=== PATIENT | male | born 1935 | race Caucasian/White ===

== ENCOUNTER 2019-08-06 09:57 | Day surgery (SDC) | payer OTHER, BC ==
[2019-08-02 18:28] VITALS: BMI 29.7
[2019-08-06] MEDS ORDERED: ACETAMINOPHEN 325 MG TABLET (FP) PO PRN (10:38)
[2019-08-06] MEDS: KETOROLAC TROMETHAMINE 0.5% EYE DROP 1 DROP DROPS ONE ×4 (10:45→11:00)
[2019-08-06] MEDS: CYCLOPENTOLATE HCL 1% OPHTH SOLN 2 ML BOTTLE ONE ×4 (10:45→11:00)
[2019-08-06] MEDS: PHENYLEPHRINE 2.5% OPHTH SOLN 15 ML BOTTLE ONE ×4 (10:45→11:00)
[2019-08-06] MEDS: OFLOXACIN 0.3% OPHTHALMIC SOLUTION 5 ML BOTTLE ONE ×4 (10:45→11:00)
[2019-08-06] MEDS: TROPICAMIDE 1% OPHTH SOLN 15 ML BOTTLE ONE ×4 (10:45→11:00)
[2019-08-06] MEDS ORDERED: EPI-SHUGARCAINE (EPINEPHRINE 0.025% & LIDOCAINE-PF 0.75%) 4ML ONE (12:18)
[2019-08-06] MEDS ORDERED: POVIDONE-IODINE 5% OPHTHALMIC PREP 30 ML SOLUTION ONE (12:18)
[2019-08-06] MEDS ORDERED: BACITRACIN/POLYMYXIN OPH OINT 3.5 GM TUBE ONE (12:18)
[2019-08-06] MEDS ORDERED: BETAXOLOL HCL 0.25% OPHTHALMIC 10 ML DROPSBTL ONE (12:18)
[2019-08-06] MEDS ORDERED: NEO/POLYMYX B SULF/DEXAMETH OPHTHALMIC 5ML BOTTLE ONE (12:19)
[2019-08-06] MEDS ORDERED: ACETYLCHOLINE 1:100 INTRA-OCUL 20 MG/2 ML KIT ONE (12:19)
[2019-08-06] MEDS ORDERED: ONDANSETRON 4 MG/2 ML VIAL IVPUSH PRN (13:13)
[2019-08-06] MEDS ORDERED: LACTATED RINGERS SOLUTION 1,000 ML IV SCH (13:15)
[2019-08-06 13:37] VITALS: TEMP 98.5
[2019-08-06 14:06] VITALS: BP 183/90; PULSE 61
--- NOTE | 2019-08-06 14:36 | OP ---
DATE OF OPERATION: 08/06/2019 PREOPERATIVE DIAGNOSIS: Cataract, left eye. POSTOPERATIVE DIAGNOSIS: Cataract, left eye. PROCEDURE: Cataract extraction via phacoemulsification with insertion of posterior chamber lens implant, left eye. SURGEON: Sabrina Tolbert MD SEISMIC SURVEY ASSISTANT: Sabrina Tolbert MD ANESTHESIA: Topical with sedation. ESTIMATED BLOOD LOSS: Less than 1 mL. COMPLICATIONS: None. SPECIMENS: None. DESCRIPTION OF PROCEDURE: The patient was identified in the holding area. After all risks, benefits, and alternatives were explained to the patient, informed consent was obtained. The left eye was marked with a marking pen. The patient then entered the operating room on an eye stretcher. After a formal time-out was performed, topical tetracaine eye drops were instilled onto the left eye. Left eye was then prepped and draped in the usual sterile fashion. An eyelid speculum was placed beneath the eyelid of the left eye. An inferotemporal paracentesis incision was created using a 15-degree blade. Topical preservative-free epinephrine and preservative-free lidocaine was then injected into the anterior chamber. Viscoelastic was then injected into the anterior chamber. A 2.4-mm keratome blade was then used to make a superotemporal incision. A 360-degree continuous curvilinear capsulorrhexis was then created using bent cystotome and Utrata forceps. Hydrodissection was performed using balanced saline solution on a cannula. Phacoemulsification was introduced to disassemble and remove the nucleus in its entirety. Irrigation/aspiration was then used to remove any remaining cortical material from the eye. The capsular bag was reformed using viscoelastic. An Raza Model [id number] with a power of 18.0 diopter serial number [id number] was inspected and found to be defect free and injected into the capsular bag. Irrigation/aspiration was then used to remove any remaining viscoelastic from the eye. The anterior chamber was reformed using balanced saline solution. All wounds were hydrated with balanced saline solution and noted to be watertight. The anterior chamber was deep. The lens was perfectly centered in the capsular bag. There was a red reflex present, and the eye had adequate pressure. Topical antibiotic eyedrops and ointment were then administered to the left eye. The eyelid speculum was removed from the left eye. The left eye was shielded. The patient tolerated the procedure well. Left the operating room in stable condition to follow up in the eye clinic tomorrow morning at 10 o'clock. SABRINA TOLBERT M.D. BENNY/[id number]
== END 2019-08-06 14:00 | disposition home or self-care (01) ==
LOC: FASU 09:57
PROVIDERS: ATTEND Ophthalmology
PROC: 08RK3JZ Replacement of Left Lens with Synthetic Substitute, Percutaneous Approach (ICD-10-PCS; principal; 2019-08-06 12:42)
DX: H26.9 Unspecified cataract (principal)

== ENCOUNTER 2019-10-10 19:42 | Emergency (ER) | payer OTHER, BC ==
[2019-10-10 20:05] VITALS: BMI 29.7
[2019-10-10 21:09] LABS: URINE APPEARANCE CLEAR; URINE BILIRUBIN NEGATIVE (NEGATIVE); URINE COLOR YELLOW; URINE GLUCOSE (UA) NEGATIVE (NEGATIVE); URINE KETONE NEGATIVE (NEGATIVE); URINE PROTEIN NEGATIVE (NEGATIVE)
[2019-10-10 21:10] LABS: URINE LEUK ESTERASE NEGATIVE (NEGATIVE); URINE NITRITE NEGATIVE (NEGATIVE); URINE UROBILINOGEN 0.2 (0.2-1.0)
[2019-10-10 21:26] LABS: BASO % 1.8 % (0-2.0); EOS % 1.3 % (0-4.5); HEMATOCRIT 46.2 % (35.4-49); HEMOGLOBIN 15.3 GM/dl (11.7-16.9); LYMPH % 13.2 % (8-40); MCH 30.1 pg (25.7-33.7); MCHC 33.1 g/dl (32.0-35.9); MEAN CELL VOLUME 90.7 fl (80-96); MONO % 6.6 % (3.8-10.2); NEUT % 77.1 % (42.8-82.8); PLATELET COUNT 169 K/MM3 (134-434); RBC 5.09 M/mm3 (4.00-5.60); RDW 14.6 % (11.9-15.9); WHITE BLOOD COUNT 8.7 K/mm3 (4.0-10.8)
[2019-10-10] MEDS ORDERED: SODIUM CHLORIDE 500 ML IV STA (21:30)
[2019-10-10] MEDS ORDERED: SODIUM CHLORIDE IV ONE (21:34)
[2019-10-10 21:38] LABS: ALBUMIN 3.7 g/dl (3.4-5.0); BILIRUBIN,TOTAL 1.5 mg/dl (0.2-1); CALCIUM 8.3 mg/dl (8.5-10); CREATININE 1.2 mg/dl (0.55-1.3); TOT PROT 6.6 g/dl (6.4-8.2)
[2019-10-10] MEDS ORDERED: ACETAMINOPHEN 1000 MG/100 ML VIAL (NON FORMULARY) IVPB ONE (21:44)
--- NOTE | 2019-10-10 21:44 | PDOC ---
Documentation entered by Patrick Cedeño SCRIBE, acting as scribe for Pritesh Curtis MD. Pritesh Curtis MD: This documentation has been prepared by the Davidson rodriguez Xhesika, SCRIBE, under my direction and personally reviewed by me in its entirety. I confirm that the documentation accurately reflects all work, treatment, procedures, and medical decision making performed by me. History of Present Illness - General Chief Complaint: Respiratory Stated Complaint: FEVER, POSS UTI History Source: Patient, Family Exam Limitations: No Limitations - History of Present Illness Initial Comments: 10/10/19 20:52 The patient is an 84 year old male with a significant PMH of COPD, HLD, CABG s/ p stent and recurrent UTI who presents to the emergency department for fever of 101, and generalized weakness. Family reports the patient was at an anniversary libertarian at 6pm, while he was there he felt weak, and kept saying he wanted to go home. Family states he urinated on himself on his way to the bathroom and did not notice. The pts family does note that he sometimes is forgetful and has had urinated on himself occaisonally, although that is not common. Son at bedside states he spoke to the patient on the phone around 6:30pm and noticed the patient appeared generally weak and may have had some slurred speech, which they last saw the last time he had a UTI 14 years ago. Family states the patient seems slower at answering questions today than usual. Pt notes he travels to recently and returned a couple of days ago, he was fine until sometime this afternoon at their friends house. The patient denies chest pain, shortness of breath, headache and dizziness. Denies fever, chills, back pain, cough, nausea, vomiting, diarrhea and constipation. Denies dysuria, frequency, urgency and hematuria. Allergies: Penicillins Past surgical history: bypass sx PCP: Cem Simmons Past History - Past Medical History Allergies/Adverse Reactions: Allergies Allergy/AdvReac Type Severity Reaction Status Date / Time Penicillins Allergy Intermediate Rash Verified 08/06/19 10:34 Home Medications: Ambulatory Orders Aspirin [ASA -] 325 mg PO DAILY 08/02/19 Atorvastatin Calcium [Lipitor] 20 mg PO DAILY 08/02/19 Lisinopril [Zestril] 10 mg PO DAILY 08/02/19 Mirabegron [Myrbetriq] 50 mg PO DAILY 08/02/19 Amlodipine Besylate 5 mg PO DAILY 10/10/19 Fluticasone/Salmeterol [Advair 250-50 Diskus] 1 each IH DAILY 10/10/19 Tamsulosin HCl [Flomax] 0.4 mg PO BID 10/10/19 Anemia: No Asthma: No Cancer: No Cardiac Disorders: Yes (CAD) CVA: No COPD: No CHF: No Dementia: No Diabetes: No GI Disorders: No Disorders: No HTN: No Hypercholesterolemia: Yes Liver Disease: No Seizures: No Thyroid Disease: No - Surgical History Abdominal Surgery: No Appendectomy: No Cardiac Surgery: Yes (bypass sx) Cholecystectomy: No Lung Surgery: No Neurologic Surgery: No Orthopedic Surgery: No - Psycho Social/Smoking Cessation Hx Smoking History: Former smoker Have you smoked in the past 12 months: No If you are a former smoker, when did you quit?: 30 y ago Hx Alcohol Use: Yes (social) Drug/Substance Use Hx: No Substance Use Type: Alcohol Review of Systems - Review of Systems Able to Perform ROS?: Yes Comments:: 10/10/19 20:55 GENERAL/CONSTITUTIONAL: No chills. +weakness. +confusion. HEAD, EYES, EARS, NOSE AND THROAT: No change in vision. No ear pain or discharge. No sore throat. CARDIOVASCULAR: No chest pain or shortness of breath. RESPIRATORY: No cough, wheezing, or hemoptysis. GASTROINTESTINAL: No nausea, vomiting, diarrhea or constipation. GENITOURINARY: No dysuria, frequency, or change in urination. MUSCULOSKELETAL: No joint or muscle swelling or pain. No neck or back pain. SKIN: No rash NEUROLOGIC: No headache, vertigo, loss of consciousness, or change in strength/ sensation. ENDOCRINE: No increased thirst. No abnormal weight change. HEMATOLOGIC/LYMPHATIC: No anemia, easy bleeding, or history of blood clots. ALLERGIC/IMMUNOLOGIC: No hives or skin allergy. *Physical Exam - Vital Signs Last Vital Signs Temp Pulse Resp BP Pulse Ox 98.5 F 83 18 158/78 96 10/10/19 19:49 10/10/19 19:49 10/10/19 19:49 10/10/19 19:49 10/10/19 19:49 - Physical Exam 10/10/19 20:51 GENERAL: The patient is awake, alert, and fully oriented However he is slow to respond to questions, Nontoxic - in no acute distress. HEAD: Normocephalic, atraumatic. EYES: extraocular movements intact, sclera anicteric, conjunctiva clear. ENT: Normal voice, Moist mucous membranes. NECK: Normal range of motion, supple, negative brudzinski/kernigs LUNGS: Breath sounds equal, clear to auscultation bilaterally. No wheezes, no rhonchi, no rales. HEART: Regular rate and rhythm, normal S1 and S2 without murmur, rub or gallop. ABDOMEN: Soft, nontender, No guarding, no rebound. No CVA tenderness EXTREMITIES: Normal range of motion, no edema. PSYCH: Normal mood, normal affect. SKIN: hot to touch, Dry, normal turgor, NEURO: Mental status: The patient is oriented x3. Cranial nerves: Cranial nerves II through XII are intact Motor: The upper extremities are 5 over 5 in all muscle groups. The lower extremities are 5 over 5 in all muscle groups. Negative pronator drift Sensation: Sensation is intact to light touch throughout. romberg negative Cerebellar: Vdjhry-ghdtop-tajq is normal in both upper extremities. rapid alternating movements are normal. Heart Score/ECG Review - ECG Impressions Comment:: 10/10/19 22:44 Twelve-lead EKG was performed and reviewed by me. There is normal sinus rhythm with a normal rate. Rate of 77 First-degree AV block There is normal R wave progression ED Treatment Course - LABORATORY CBC & Chemistry Diagram: 10/10/19 21:00 10/10/19 21:00 Medical Decision Making - Medical Decision Making 10/10/19 20:28 84y M hx of CAD sp stents, hl, copd, uti, presents with Altered mental status. Per the family the patient was visiting a friend earlier and they noticed that he was not acting himself he also urinated on the way to the bathroom and did not realize it, His friend also checked his temperature and noticed he was febrile So family brought the patient to the ED. Patient states that the patient 's seems slower in responding than usual. The patient states he feels a little weak but has no specific complaints Including any headache, dizziness, vision changes, focal numbness, tingling, weakness, chills, cough, dysuria, diarrhea, abdominal pain, chest Differential for the patient's symptoms is wide and includes possible occult infection including UTI, metabolic derangements, anemia, Consider possible CVA. Hyperglycemia Will obtain blood work, urine, chest x-ray, BGM. 10/10/19 21:25 pts UA negative will obtain CT head to eval CVA gentle fluids for hydration 10/10/19 21:32 Patient's family are discussing the merits of obtaining a chest x-ray and a CT head I discussed concern for CVA Or other intracranial cause of the patient's altered mental statusthey are discussing with her doctor friend on the phone said to come back in a bit for their decision. 10/10/19 21:35 The patient is febrile per rectal temp, sepsis order set initiated. 10/10/19 22:21 The patient's blood work is reviewed it is unremarkable. There is no leukocytosis, electrolytes are essentially normal. 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 will have pt fu this up as outpatient. no other signs of acute pathology noted. cxr clear without signs of pna 10/11/19 00:08 Patient seems to be at his baseline mental status the patient's lactic acid and influenza are negative. I had an extensive discussion with the patient's family. I will have the patient closely follow-up with his primary care doctor with strict return precautions. The daughter did mention the patient is having episodes of forgetfulness and is supposed to follow-up with neurology at the end of the month. I will have the patient follow-up with neurology regarding the cyst on his CT Discharge - Discharge Information Problems reviewed: Yes Clinical Impression/Diagnosis: Fever Qualifiers: Fever type: unspecified Qualified Code(s): R50.9 - Fever, unspecified Condition: Stable Disposition: HOME - Admission No - Follow up/Referral Referrals: Cem Saez MD [Primary Care Provider] - - Patient Discharge Instructions Patient Printed Discharge Instructions: DI for Fever (Symptom) -- Adult Additional Instructions: Return to the emergency department immediately with ANY new, persistent or worsening symptoms including any other symptoms including headache, dizziness, chest pain, cough, shortness of breath, nausea, vomiting, abdominal pain or any other concerns. Take Tylenol Motrin for fever You MUST call and follow up with your doctor tomorrow for further evaluation of your symptoms. Results were discussed with you. Please make sure your doctor reviews the results of your emergency evaluation. Your Emergency Department visit is not complete without a follow up with your doctor. Print Language: MOHAWK - Post Discharge Activity
[2019-10-10] MEDS ORDERED: ACETAMINOPHEN INJECTION 100 ML IVPB ONE (22:33)
[2019-10-10 23:09] LABS: VENOUS PC02 33.1 mmHg (38-52)
[2019-10-10 23:10] LABS: VENOUS PO2 < 49 mmHg (28-48)
[2019-10-11 00:15] VITALS: BP 122/61; PULSE 58
[2019-10-11 00:17] VITALS: TEMP 98
--- NOTE | 2019-10-11 12:13 | EKG ---
Test Reason : Blood Pressure : / mmHG Vent. Rate : 077 BPM Atrial Rate : 077 BPM P-R Int : 238 ms QRS Dur : 096 ms QT Int : 390 ms P-R-T Axes : 025 000 046 degrees QTc Int : 441 ms SINUS RHYTHM WITH 1ST DEGREE A-V BLOCK CANNOT RULE OUT INFERIOR INFARCT , AGE UNDETERMINED NONSPECIFIC ST ABNORMALITY ABNORMAL ECG NO PREVIOUS ECGS AVAILABLE Confirmed by SHAWN BATES MD ([id number]) on 10/11/2019 12:13:35 PM Referred By: DR WHARTON Confirmed By:SHAWN BATES MD
== END 2019-10-11 00:28 | disposition home or self-care (01) ==
LOC: SUPCPDRO 19:42 → FER 19:42
PROC: 3E033NZ Introduction of Analgesics, Hypnotics, Sedatives into Peripheral Vein, Percutaneous Approach (ICD-10-PCS; principal; 2019-10-10)
PROC: 3E0337Z Introduction of Electrolytic and Water Balance Substance into Peripheral Vein, Percutaneous Approach (ICD-10-PCS; 2019-10-10)
DX: R50.9 Fever, unspecified (principal); E78.5 Hyperlipidemia, unspecified; J44.9 Chronic obstructive pulmonary disease, unspecified; Z79.82 Long term (current) use of aspirin; Z87.440 Personal history of urinary (tract) infections; Z95.1 Presence of aortocoronary bypass graft; Z95.5 Presence of coronary angioplasty implant and graft; Z88.0 Allergy status to penicillin
CPT/HCPCS: 36415; 70450-TC; 71046-TC-FY; 80053; 81003; 82550; 82803; 83605; 84484; 85025; 87040; 87086; 87804; 93005; 99285-25; J0131; J7030

== ENCOUNTER 2024-05-02 13:11 | Emergency (ER) | payer OTHER, BC ==
[2024-05-02 13:26] VITALS: BP 127/77; PULSE 70; RESP 18; TEMP 98.2; BMI 29.7
[2024-05-02] MEDS ORDERED: ACETAMINOPHEN 325 MG TABLET (FP) ONE (14:03)
[2024-05-02] MEDS: ACETAMINOPHEN 325 MG TABLET (FP) PO ONE (14:05)
== END 2024-05-02 16:26 | disposition home or self-care (01) ==
LOC: FER 13:11
DX: M79.671 Pain in right foot (principal)
CPT/HCPCS: 73610-TC-RT-FY; 73630-TC-RT-FY; 99283-25